=== PATIENT | female | born 1965 | race Caucasian/White ===

== ENCOUNTER 2017-05-21 14:32 | Emergency (ER) | payer MEDICAID ==
[~2017-05-21] VITALS: Ht 157.5 cm; Wt 61.2 kg
[~2017-05-21 14:32] MED LIST: ADV250/50 INH; DUONEB3 ML NEB; LAC PO; LEVAQUIN500 MG PO; LEVAQUIN750 MG PO; LEVOTHROID0.075 MG PO; MEDDP PO; MUCINEX600 MG PO; PRE10 PO; PROVENTIL0.09 MG/A1; PROVENTIL0.09 MG/A1 IH; SIMVASTATIN10 M1 PO; SINGULAIR4 MG
[2017-05-21 15:10] VITALS: Ht 157.5 cm; Wt 61.2 kg
[2017-05-21 20:05] VITALS: BP 110/78
== END 2017-05-21 20:05 | disposition home or self-care (01) ==
LOC: ED 14:32
DX: H60.92 Unspecified otitis externa, left ear (principal); J44.1 Chronic obstructive pulmonary disease with (acute) exacerbation; E03.9 Hypothyroidism, unspecified; Z88.5 Allergy status to narcotic agent
CPT/HCPCS: J3030

== ENCOUNTER 2017-11-22 04:04 | Emergency (ER) | payer MEDICAID ==
[~2017-11-22] VITALS: Ht 157.5 cm; Wt 63.2 kg
[2017-11-22 08:03] VITALS: BP 127/88
== END 2017-11-22 08:18 | disposition home or self-care (01) ==
LOC: ED 04:04
DX: S30.0XXA Contusion of lower back and pelvis, initial encounter (principal); S93.402A Sprain of unspecified ligament of left ankle, initial encounter; F17.210 Nicotine dependence, cigarettes, uncomplicated; E03.9 Hypothyroidism, unspecified; Z90.710 Acquired absence of both cervix and uterus; J44.9 Chronic obstructive pulmonary disease, unspecified; Z88.5 Allergy status to narcotic agent; W07.XXXA Fall from chair, initial encounter; Y93.89 Activity, other specified; Y92.89 Other specified places as the place of occurrence of the external cause; Y99.8 Other external cause status
CPT/HCPCS: 99406

== ENCOUNTER 2018-07-22 12:50 | Emergency (ER) | payer MEDICAID ==
[~2018-07-22] VITALS: Ht 157.5 cm; Wt 65.3 kg
[2018-07-22 13:00] VITALS: Ht 157.5 cm; Wt 65.3 kg
[2018-07-22 15:17] VITALS: BP 101/69
[2018-07-22 15:17] LABS: BASOPHIL % 0.9 % (0-2); PLATELET COUNT 291 x10^3mcL (130-400); RED CELL DISTRIBUTION WIDTH 13.2 % (11.5-14.5)
[2018-07-22 15:26] LABS: CALCIUM 8.4 mg/dL (8.5-10.1); CARBON DIOXIDE 25.6 mmol/L (21-32); CHLORIDE SERUM 106 mmol/L (98-107); CREATININE SERUM 0.7 mg/dL (0.6-1.0); GFR1 > 60 mL/min; GLUCOSE SERUM 86 mg/dL (74-106); POTASSIUM SERUM 3.9 mmol/L (3.5-5.1); SODIUM SERUM 142 mmol/L (136-145)
[2018-07-22 15:32] LABS: ALBUMIN 3.5 g/dL (3.4-5.0); ALKALINE PHOSPHATASE 85 U/L (46-116); ALT/SGPT 36 U/L (14-59); AST/SGOT 36 U/L (15-37); BILIRUBIN TOTAL 0.2 mg/dL (0.20-1.00); CHOLESTEROL 166 mg/dL (<200); CHOLESTEROL/HDL RATIO 2.8; HDL CHOLESTEROL 59 mg/dL (40-60); LIPASE 295 IU/L (73-393); TOTAL PROTEIN, SERUM 6.7 g/dL (6.4-8.2); TRIGLYCERIDES 169 mg/dL (<150)
[2018-07-22 15:38] LABS: FREE T4 0.55 ng/dL (0.76-1.46)
[2018-07-22 15:40] LABS: FREE THYROXINE INDEX 1.2 ug/dL (1.4-4.5); T4(THYROXINE) 3.8 ug/dL (4.7-13.3)
[2018-07-22 15:50] LABS: T3 TOTAL 1.03 ng/mL
== END 2018-07-22 16:32 | disposition home or self-care (01) ==
LOC: ED 12:50
PROVIDERS: Specialist
DX: J44.1 Chronic obstructive pulmonary disease with (acute) exacerbation (principal); E03.9 Hypothyroidism, unspecified; Z88.5 Allergy status to narcotic agent
CPT/HCPCS: 36415; 83880; 84439; J7512; J7613; J7644

== ENCOUNTER 2019-01-19 16:22 | Emergency (ER) | payer MEDICAID ==
[~2019-01-19] VITALS: Ht 157.5 cm; Wt 65.3 kg
[2019-01-19 16:44] VITALS: Ht 157.5 cm; Wt 65.3 kg
[2019-01-19 19:06] VITALS: BP 118/83
== END 2019-01-19 19:06 | disposition home or self-care (01) ==
LOC: ED 16:22
DX: S20.469A Insect bite (nonvenomous) of unspecified back wall of thorax, initial encounter (principal); R42 Dizziness and giddiness; J44.9 Chronic obstructive pulmonary disease, unspecified; E03.9 Hypothyroidism, unspecified; Z88.5 Allergy status to narcotic agent; W57.XXXA Bitten or stung by nonvenomous insect and other nonvenomous arthropods, initial encounter; Y93.89 Activity, other specified; Y92.89 Other specified places as the place of occurrence of the external cause; Y99.8 Other external cause status
CPT/HCPCS: J8597

== ENCOUNTER 2019-09-22 19:49 | Emergency (ER) | payer MEDICAID ==
[~2019-09-22] VITALS: Ht 157.5 cm; Wt 63.5 kg
[2019-09-22 19:58] VITALS: Ht 157.5 cm; Wt 63.5 kg
[2019-09-22 21:25] VITALS: BP 116/75
== END 2019-09-22 21:25 | disposition home or self-care (01) ==
LOC: ED 19:49
DX: S93.491A Sprain of other ligament of right ankle, initial encounter (principal); J44.9 Chronic obstructive pulmonary disease, unspecified; E03.9 Hypothyroidism, unspecified; Z88.5 Allergy status to narcotic agent; X50.1XXA Overexertion from prolonged static or awkward postures, initial encounter; Y93.89 Activity, other specified; Y92.89 Other specified places as the place of occurrence of the external cause; Y99.8 Other external cause status
CPT/HCPCS: Q0092